=== PATIENT | female | born 1960 | race Asian ===

== ENCOUNTER → 2020-07-01 13:52 | Outpatient (CLI) | payer OTHER, SELFPAY ==
[2020-07-01 14:49] LABS: COVID19 -Nasal RAPID Negative (Negative)
== END ==
PROVIDERS: PCP Family Medicine; Visit Provider Physician Assistant
DX: Z20.822 Contact with and (suspected) exposure to COVID-19 (principal)
CPT/HCPCS: 87635

== ENCOUNTER 2020-07-03 10:23 | Day surgery (SDC) | payer OTHER, SELFPAY ==
[2020-07-03] VITALS (7 sets, daily range): BP systolic 144–152; BP diastolic 60–84; PULSE 62–70; RESP 12–16; TEMP 36.2–36.8; O2SAT 94–98; BMI 26.4
--- NOTE | 2020-07-03 | PATH_ITS ---
[facility] Accession Number: [id number] . 01 Material submitted: . PART A: gastrointestinal site - GASTRIC BIOPSY PART B: gastrointestinal site - GASTRIC POLYP . 01 Clinical history: . EGD A. RULE OUT H. PYLORI . 02 Diagnosis: A. Stomach, Biopsy: Antral and body-type mucosa with no diagnostic abnormality. No evidence of Helicobacter organisms on H/E stain. Negative for intestinal metaplasia. Negative for dysplasia and malignancy. . B. Stomach, Polyp, Biopsy: Fundic gland polyp. No evidence of Helicobacter organisms on H/E stain. Negative for intestinal metaplasia. Negative for dysplasia and malignancy. . BFI 07/05/2020 1528 Local . 02 Electronically signed: . Tonia Love MD, Pathologist NPI- [id number] . 01 Gross description: . Part A: GASTRIC BIOPSY: Received in formalin are 4 fragment(s) of palomino, soft tissue measuring 0.1 x 0.1 x 0.1 cm to 0.3 x 0.3 x 0.3 cm submitted entirely in 1 cassette(s) Part B: GASTRIC POLYP: Received in formalin are 3 fragment(s) of palomino, soft tissue measuring 0.1 x 0.1 x 0.1 cm to 0.3 x 0.2 x 0.2 cm submitted entirely in 1 cassette(s) /DEBORAH 07/04/2020 1859 Local . 02 Pathologist provided ICD-10: R10.13 . 02 CPT . 316003, [id number] Performed at: 01 [facility] [address] [facility], [place], [place] [id number] MD Jorge Freeman MD Phone: [phone] Performed at: 02 [facility] [address] [place] [id number] MD Tonia Love MD Phone: [phone]
[2020-07-03] MEDS: SODIUM CHLORIDE 0.9% 1,000 ML 70 ML IV (11:08)
[2020-07-03] MEDS: LIDOCAINE 4% SOLN 50 ML 20 ML TOP (11:20)
--- NOTE | 2020-07-03 11:20 | P.HP_ITS ---
History of Present Illness History of Present Illness Date Patient Seen: 07/03/20 Time Patient Seen: 11:10 Chief complaint: EGD Narrative: Patient is a very pleasant 52-year-old female who presented for upper endoscopy. She was last evaluated by [facility] her symptoms of dyspepsia and left upper quadrant abdominal pain. She has not had any changes to her symptoms since that time. Patient History Medical History Hypertension Family & Social History Social History: household members family Tobacco & Substance use: Smoking Status Never smoker alcohol intake frequency holiday/special occasion Substance Use Type does not use Meds Home Medications and Allergies Allergies Allergy/AdvReac Type Severity Reaction Status Date / Time Sulfa (Sulfonamide Allergy Mild Nausea Verified 07/03/20 11:10 Antibiotics) Review of Systems Review of Systems ROS: Yes All systems reviewed with the patient and are negative except as otherwise documented Exam Vital Signs (past 8 hours): - 07/03/20 10:54 Temperature 97.2 F L Pulse Rate 70 Respiratory Rate 13 Blood Pressure 150/60 H Pulse Oximetry 98 Oxygen Delivery Method Room Air Oxygen Flow Rate 0 Const General: cooperative, healthy appearing, comfortable, well developed and well groomed Nutritional Appearance: average body habitus HENMT Head: normocephalic and atraumatic Resp Effort & Inspection: normal respiratory effort and able to speak in complete sentences Auscultation: clear to auscultation bilaterally Cardio Rate: regular rate Rhythm: regular rhythm Heart Sounds: S1 normal and S2 normal GI Palpation: soft Auscultation: normal bowel sounds Extrem Right lower extremity: no edema Left lower extremity: no edema Assessment & Plan Assessment & Plan narrative: 1. Left upper quadrant abdominal pain 2. Dyspepsia EGD today, further recommendations to follow
[2020-07-03] MEDS: fentaNYL 250 MCG/5 ML INJ IV (11:23)
[2020-07-03] MEDS: MIDAZOLAM 5 MG/5 ML VIAL IV (11:23)
--- NOTE | 2020-07-03 11:31 | PM.OP.ENDO ---
Operative Date/Time/Diagnoses Date of procedure: 07/03/20 Time of procedure: 11:23 Procedure Notes Procedure in detail: Surgeon: Mara Yoder DO Procedure: Esophagogastroduodenoscopy with biopsy Preoperative diagnosis: 1. Left upper quadrant abdominal pain 2. Dyspepsia Postoperative diagnosis: 1. Mild gastritis, biopsied to rule out H pylori 2. Gastric polyps 3. Normal-appearing esophagus and duodenum Medications: Conscious sedation using 2 mg IV of Midazolam and 100 mcg IV of Fentanyl Preanesthesia Assessment An H and P was performed/updated and the Px?s ASA class is 1. The procedure was discussed in detail with the patient. The potential risks and complications including infection, bleeding, missed lesions, perforation, need for surgery in case of perforation, prolonged hospital stay, and were explained. A brief question and answer period was allotted and once all questions were answered, informed consent was obtained. The patient was brought back to the procedure room and placed on standard monitoring. The patient?s vital signs were monitored continuously throughout the entire procedure. Prior to starting, a timeout was performed to confirm the patient?s identity, allergies, medications, and procedure. Procedure in detail The patient was placed in left lateral decubitus position and a bite block was inserted. The tip of the upper endoscope was placed into the mouth and advanced without difficulty under direct visualization into the esophagus. Esophagus: Normal-appearing esophagus Stomach: With mild gastritis, patchy erythema in the antrum and body. Biopsied to rule out H pylori Multiple small gastric polyps, biopsied Duodenum: Normal-appearing duodenum The patient tolerated the procedure well and will be brought back to the recovery area to be discharged once criteria are met. The total physician intraservice time was 10min. Complications There were no complications and estimated blood loss was minimal. Recommendations: Resume previous diet Continue outPx medications Follow up pathology results Office follow up as previously scheduled An emergency contact number was given to the patient for any complications related to the procedure
== END 2020-07-03 12:21 | disposition home or self-care (01) ==
PROVIDERS: PCP Family Medicine; Referring Provider Student in an Organized Health Care Education/Training Program; Visit Provider Student in an Organized Health Care Education/Training Program
PROC: 0DJ08ZZ Inspection of Upper Intestinal Tract, Via Natural or Artificial Opening Endoscopic (ICD-10-PCS; CPT 43235; principal; 2020-07-03 11:30)
DX: K29.50 Unspecified chronic gastritis without bleeding (principal); I10 Essential (primary) hypertension; K31.7 Polyp of stomach and duodenum
CPT/HCPCS: 43239; J2250; J3010

== ENCOUNTER 2020-07-03 20:07 | Emergency (ER) | payer OTHER, SELFPAY ==
[2020-07-03] VITALS (9 sets, daily range): BP systolic 145–209; BP diastolic 67–108; PULSE 68–76; RESP 20; TEMP 36.6; O2SAT 94–98
[2020-07-03] MEDS: SODIUM CHLORIDE 0.9% 1,000 ML 1000 ML IV (20:33)
[2020-07-03] MEDS: ONDANSETRON 4 MG/2 ML INJ IV (20:33)
[2020-07-03 20:46] LABS: Add Manual Diff / Slide Review NO; Basophils Absolute Auto 0 /uL (0-100); Basophils Percent Auto 0.5 % (0-2); Eosinophils Absolute Auto 0 /uL (0-450); Eosinophils Percent Auto 0.3 % (2-4); Hematocrit 40.2 % (36-46); Hemoglobin 13.5 g/dL (12.0-16.0); Lymphocytes Absolute Auto 1600 /uL (1100-4500); Lymphocytes Percent Auto 17.8 % (25-40); Mean Corpuscular HGB Conc 33.4 % (30-36); Mean Corpuscular Hemoglobin 30.9 PG (26-34); Mean Corpuscular Volume 92.6 fL (80-100); Monocytes Absolute Auto 300 /uL (0-900); Monocytes Percent Auto 3.5 % (3-14); Neutrophils Absolute Auto 7100 /uL (1500-7000); Neutrophils Percent Auto 77.9 % (50-75); Platelet Count 308 X10^3/uL (150-400); Red Blood Cell Count 4.35 X10^6/uL (4.0-5.2); Red Cell Distribution Width 12.1 % (11.6-14.8); White Blood Cell Count 9.1 X10^3/uL (4.5-11.0)
[2020-07-03 20:58] LABS: Alanine Aminotransferase 22 IU/L (<35); Albumin 4.6 g/dL (3.5-5.0); Albumin Globulin Ratio 1.6 (1.0-2.8); Alkaline Phosphatase 70 U/L (38-126); Aspartate Aminotransferase 32 IU/L (14-36); BUN Creatinine Ratio 23.3 (6-22); Bilirubin Total 0.8 mg/dL (0.2-1.3); Blood Urea Nitrogen 10 mg/dL (7-17); Calcium 8.9 mg/dL (8.4-10.2); Carbon Dioxide 26 mmol/L (22-32); Chloride 103 mmol/L (98-107); Estimated Glomerular Filt Rate > 60.0 mL/min (>60); Globulin 2.9 g/dL (1.7-4.1); Glucose 153 mg/dL (70-100); HEMOLYSIS < 15 (0-50); Potassium 3.6 mmol/L (3.4-5.1); Sodium 137 mmol/L (137-145); Total Protein 7.5 g/dL (6.3-8.2)
--- NOTE | 2020-07-03 22:03 | ED_ITS ---
HPI - Nausea/Vomiting/Diarrhea General Chief complaint: Nausea/Vomiting/Diarrhea Stated complaint: vomiting, headache s/p EGD earlier Time Seen by Provider: 07/03/20 21:48 Source: patient and family Mode of arrival: Ambulatory Limitations: no limitations History of Present Illness HPI Narrative: Patient here with daughter. Complains of headache and nausea and vomiting since her endoscopy of the stomach today at this facility by her provider. Has had EGD and colonoscopies in the past without headaches and nause a vomiting postoperatively. Patient has history of migraine headaches. Not had 1 in a long time. Is usually on the right side of her head. Denies denies any chest pain or abdominal pain. Has not tried any medications for relief. At this time agrees with IV medication as patient just had EGD with some gastritis findings. Will try avoid upsetting abdomen/stomach. Please see report below. Patient had Versed and fentanyl for sedation. No numbness tingling weakness. No slurred speech or altered mental status. No vision changes. Headache location bilateral forehead, no neck pain MD complaint: nausea and vomiting Related Data Previous Rx's Medication Instructions Recorded ondansetron 4 mg PO Q8H PRN #10 tab 07/03/20 Allergies Allergy/AdvReac Type Severity Reaction Status Date / Time Sulfa (Sulfonamide Allergy Mild Nausea Verified 07/03/20 11:10 Antibiotics) Review of Systems Review of Systems Narrative: GENERAL: Denies chills, fatigue, malaise, fever, sweats. HEENT: Denies sinus pain, ear pain, sore throat, difficulty swallowing RESPIRATORY: Denies dyspnea, cough CARDIOVASCULAR: Denies chest pain, palpitations, edema, GASTROINTESTINAL: Denies nausea, vomiting, abdominal pain, diarrhea, constipation, melena. : Denies dysuria, frequency, hematuria MUSCULOSKELETAL: denies muscle or bony pain SKIN: Denies rash, skin lesions NEUROLOGIC: Denies weakness, complains headache, denies numbness, change in speech, confusion PSYCHIATRIC: No SI or HI or hallucinations ROS Unobtainable: All systems reviewed & are unremarkable except as noted in HPI and below Patient History Medical History Hypertension Social History household members: family Smoking Status: Never smoker Smoking Status: Never smoker alcohol intake frequency: holidays/special occasions only Substance Use Type: does not use Exam Narrative Exam Narrative: GENERAL: patient appears stated age. Well-nourished, well- developed patient, in no distress, not toxic not dyspneic HEAD: Normocephalic. EYES: Pupils equal round and reactive. No scleral icterus. No injection no discharge, no photophobia ENT: Mucous membranes moist. No drooling no tongue elevation no trismus no malocclusion NECK: Trachea midline. Non tender, no meningeal signs with range of motion CARDIOVASCULAR: Regular rate and rhythm without murmurs, gallops, or rubs. RESPIRATORY: Clear to auscultation. Breath sounds equal bilaterally. No wheezes, rales, or rhonchi. GASTROINTESTINAL: Abdomen soft, non-tender, nondistended. EXTREMITIES: No gross deformities. BACK: Nontender without deformity or crepitance. No flank tenderness. NEURO: AOx4. Clear speech no facial droop light touch intact to bilateral face hands and legs. Strong equal inspector open die. SKIN: Warm and dry PSYCH: Not anxious, is cooperative Initial Vital Signs Initial Vital Signs: Vital Signs Temperature 98 F 07/03/20 20:15 Pulse Rate 72 07/03/20 20:15 Respiratory Rate 20 07/03/20 20:15 Blood Pressure 209/97 H 07/03/20 20:15 Pulse Oximetry 98 07/03/20 20:15 Course Course Course Narrative: Patient feel much better after morphine and IV fluids and Zofran. Orders Ordered: ED Orders 07/03/20 20:32 CBC Auto Diff [Complete Blood Count AUTO DIFF] Stat Comprehensive Metabolic Panel Stat Discontinued Medications Sodium Chloride (Normal Saline 0.9%) 1,000 mls @ 1,000 mls/hr IV BOLUS ONE Stop: 07/03/20 21:28 Last Infusion: 07/03/20 22:24 Dose: 0 mls/hr Documented by: Admin: 07/03/20 20:33 Dose: 1,000 mls/hr Documented by: LUC Morphine Sulfate (Morphine 4 Mg/Ml Inj) 4 mg IV NOW ONE Stop: 07/03/20 22:03 Last Admin: 07/03/20 22:14 Dose: 4 mg Documented by: LUC Ondansetron HCl (Ondansetron 4 Mg/2 Ml Inj) 4 mg IV NOW ONE Stop: 07/03/20 20:30 Last Admin: 07/03/20 20:33 Dose: 4 mg Documented by: LUC Ondansetron HCl (Ondansetron 4 Mg Odt Prepack) 1 bottle MISC SEEINSTR ONE Stop: 07/03/20 23:02 Last Admin: 07/03/20 23:05 Dose: 1 bottle Documented by: LUC Reevaluation(s) Reevaluation #1: Patient desires discharge home. No headache no vomiting. Blood pressure improved 145/68 Time: 23:02 Vital Signs Vital signs: Vital Signs - 8 hr 07/03/20 20:15 07/03/20 20:27 07/03/20 20:30 Temperature 98 F Pulse Rate 72 72 71 Respiratory Rate 20 Blood Pressure 209/97 H Pulse Oximetry 98 97 97 07/03/20 20:38 07/03/20 21:00 07/03/20 21:30 Temperature Pulse Rate 69 71 70 Respiratory Rate Blood Pressure 166/74 H 155/70 H 154/67 H Pulse Oximetry 96 95 96 07/03/20 22:00 07/03/20 22:27 07/03/20 22:30 Temperature Pulse Rate 76 69 68 Respiratory Rate Blood Pressure 145/108 H 146/68 H 145/68 H Pulse Oximetry 97 95 94 MDM - Nausea/Vomiting/Diarrhea Differential Diagnosis Differential diagnosis: Likely other (Anesthesia reactions/migraine headache/tension headache) Medical Records Attestation: I reviewed the patient's medical records. Medical records narrative: [address] [id number] Note Patient: Flori Brewster R#: [id number]: 2Acct:[id number]/Sex: 60 / F Date of Service: 07/03/20Provider: Mara Yoder D.O. Operative Date/Time/Diagnoses Date of procedure: 07/03/20 Time of procedure: 11:23 Procedure Notes Procedure in detail: Surgeon: Mara Yoder DO Procedure: Esophagogastroduodenoscopy with biopsy Preoperative diagnosis: 1. Left upper quadrant abdominal pain 2. Dyspepsia Postoperative diagnosis: 1. Mild gastritis, biopsied to rule out H pylori 2. Gastric polyps 3. Normal-appearing esophagus and duodenum Medications: Conscious sedation using 2 mg IV of Midazolam and 100 mcg IV of Fentanyl Preanesthesia Assessment An H and P was performed/updated and the Px?s ASA class is 1. The procedure was discussed in detail with the patient. The potential risks and complications including infection, bleeding, missed lesions, perforation, need for surgery in case of perforation, prolonged hospital stay, and were explained. A brief question and answer period was allotted and once all questions were answered, informed consent was obtained. The patient was brought back to the procedure room and placed on standard monitoring. The patient?s vital signs were monitored continuously throughout the entire procedure. Prior to starting, a timeout was performed to confirm the patient?s identity, allergies, medications, and procedure. Procedure in detail The patient was placed in left lateral decubitus position and a bite block was inserted. The tip of the upper endoscope was placed into the mouth and advanced without difficulty under direct visualization into the esophagus. Esophagus: Normal-appearing esophagus Stomach: With mild gastritis, patchy erythema in the antrum and body. Biopsied to rule out H pylori Multiple small gastric polyps, biopsied Duodenum: Normal-appearing duodenum The patient tolerated the procedure well and will be brought back to the recovery area to be discharged once criteria are met. The total physician intraservice time was 10min. Complications There were no complications and estimated blood loss was minimal. Recommendations: Resume previous diet Continue outPx medications Follow up pathology results Office follow up as previously scheduled An emergency contact number was given to the patient for any complications related to the procedure Signed By:<Electronically signed by Mara Yoder D.O.>07/03/20 1134 Lab Data Result diagrams: 07/03/20 20:32 07/03/20 20:32 Labs: Lab Results 07/03/20 07/03/20 Range/Units 20:32 20:32 WBC 9.1 (4.5-11.0) X10^3/uL RBC 4.35 (4.0-5.2) X10^6/uL Hgb 13.5 (12.0-16.0) g/dL Hct 40.2 (36-46) % MCV 92.6 (80-100) fL MCH 30.9 (26-34) PG MCHC 33.4 (30-36) % RDW 12.1 (11.6-14.8) % Plt Count 308 (150-400) X10^3/uL Neut % (Auto) 77.9 H (50-75) % Lymph % (Auto) 17.8 L (25-40) % [place] % (Auto) 3.5 (3-14) % Eos % (Auto) 0.3 L (2-4) % Baso % (Auto) 0.5 (0-2) % Neut # (Auto) 7100 H (0427-4370) /uL Lymph # (Auto) 1600 (3143-8630) /uL [place] # (Auto) 300 (0-900) /uL Eos # (Auto) 0 (0-450) /uL Baso # (Auto) 0 (0-100) /uL Sodium 137 (137-145) mmol/L Potassium 3.6 (3.4-5.1) mmol/L Chloride 103 (98-107) mmol/L Carbon Dioxide 26 (22-32) mmol/L BUN 10 (7-17) mg/dL Creatinine 0.43 L (0.52-1.04) mg/dL Estimated GFR > 60.0 (>60) mL/min BUN/Creatinine Ratio 23.3 H (6-22) Glucose 153 H (70-100) mg/dL Calcium 8.9 (8.4-10.2) mg/dL Total Bilirubin 0.8 (0.2-1.3) mg/dL AST 32 (14-36) IU/L ALT 22 (<35) IU/L Alkaline Phosphatase 70 (38-126) U/L Total Protein 7.5 (6.3-8.2) g/dL Albumin 4.6 (3.5-5.0) g/dL Globulin 2.9 (1.7-4.1) g/dL Albumin/Globulin Ratio 1.6 (1.0-2.8) MDM Narrative Medical decision making narrative: Appropriate for discharge home. No imaging abdomen. No abdominal pain. No chest pain. No dyspnea. Patient has not eaten since midnight the day before. Had endoscopy 11:00 a.m. this morning. Vital signs as well as blood studies reviewed. Not toxic. Patient and daughter agree for discharge home Discharge Plan Departure Patient Disposition: Home Clinical Impression: Acute vomiting Headache Qualifiers: Headache type: unspecified Headache chronicity pattern: unspecified pattern Intractability: not intractable Qualified Code(s): R51.9 - Headache, unspecified Instructions: DI for Nausea -- Adult, DI for Headache Activity Restrictions/Additional Instructions: No driving tonight. See family doctor next week for recheck of headache and vomiting. Return if worse or if any questions or concerns. Keep well hydrated Prescriptions: New ondansetron 4 mg tablet,disintegrating 4 mg PO Q8H PRN (Reason: nausea and vomiting) Qty: 10 RF: 0 Referrals: Anabel Sheth MD [Primary Care Provider] -
[2020-07-03] MEDS: MORPHINE 4 MG/ML INJ IV (22:14)
[2020-07-03] MEDS: ONDANSETRON 4 MG ODT PREPACK 1 BOTTLE MISC (23:05)
== END 2020-07-03 23:10 | disposition home or self-care (01) ==
PROVIDERS: Emergency Provider Emergency Medicine; PCP Family Medicine
DX: R11.10 Vomiting, unspecified (principal); R51.9 Headache, unspecified
CPT/HCPCS: 80053; 85025; 96361; 96374; 96375; 99281; 99284; J2270; J2405